=== PATIENT | male | born 1940 | race Caucasian/White ===

== ENCOUNTER 2016-11-07 00:08 | Inpatient (IN) ==
[2016-11-07 00:31] LABS: MANUAL DIFF NEEDED? NO
[2016-11-07 00:37] LABS: BASO% 0.8 % (0.0-0.8); EOS# 0.12 X1000 (0.0-0.7); EOS% 3.3 % (0.0-10.0); HEMATOCRIT 37.9 % (42.0-52.0); IMM GRAN# 0.02 X1000 (0.0-0.04); IMM GRAN% 0.5 % (0.0-0.5); LYMPH% 16.4 % (20.5-51.1); MCHC 34.3 g/dL (33-37); MCV 87.5 FL (81-99); MONO# 0.24 X1000 (0.11-0.59); MONO% 6.6 % (1.7-9.3); MPV 10.2 FL (7.4-10.4); NEUT% 72.4 % (42.2-75.2); PLT 124 X1000 (130-400); RBC 4.33 XMIL (4.7-6.1)
[2016-11-07 00:54] LABS: ALBUMIN 3.7 g/dL (3.5-5.0); CALCIUM 9.2 mg/dL (8.8-10.2); POTASSIUM 4.4 mmol/L (3.5-5.1); TOTAL BILIRUBIN 0.32 mg/dL (0.20-1.00)
[2016-11-07] MEDS ORDERED: TYLENOL PO ONE (01:17)
[2016-11-07] MEDS ORDERED: VANCOMYCIN 1 GM/NS 1 GM/250 ML IVPB IV ONE (01:38)
[2016-11-07] MEDS ORDERED: ZOSYN 3.375 GM/NS 3.375 GM/50 ML IVPB IV ONE (01:38)
--- NOTE | 2016-11-07 01:52 | PROVIDER DOCUMENTATION ---
This chart was entered by Karen Guan Scribe, acting as scribe for Moy Shahid MD. HPI-General Adult - General Chief Complaint: Weakness Stated Complaint: general weakness Time Seen by Provider: 11/07/16 00:36 Source: patient Allergies/Adverse Reactions: Patient Allergies Allergy/AdvReac Type Severity Reaction Status Date / Time No Known Allergies Allergy Verified 06/05/15 13:09 Home Medications: Home Medication List Medication Instructions Recorded Confirmed Last Taken Type Finasteride [Proscar] 5 mg PO DAILY 06/05/15 11/07/16 11/06/16 08:00 History Hagaman-3 Fatty Acids [Fish Oil] 1 mg PO DAILY 06/05/15 11/07/16 06/05/15 07:00 History Omeprazole 1 mg PO DAILY 06/05/15 11/07/16 11/06/16 08:00 History ATORVAstatin [Lipitor] 20 mg PO QHS #0 tablet 06/06/15 11/07/16 11/05/16 20:00 Rx Aspirin EC 81 mg PO DAILY 11/07/16 11/07/16 11/06/16 08:00 History Benazepril/Hydrochlorothiazide 1 each PO DAILY 11/07/16 11/07/16 11/06/16 08:00 History [Benazepril-Hctz 20-25 mg Tab] Diclofenac Sodium 50 mg PO BID PRN PRN 11/07/16 11/07/16 Unknown History Gabapentin 600 mg PO TID PRN PRN 11/07/16 11/07/16 Unknown History Metformin [Glucophage] 500 mg PO DAILY 11/07/16 11/07/16 Unknown History Sulfamethoxazole/Tmp D.s. [Septra 1 each PO BID 11/07/16 11/07/16 11/06/16 08: 00 History Ds] Tramadol HCl 50 mg PO TID PRN PRN 11/07/16 11/07/16 Unknown History - History of Present Illness -Gen Adult Nature of Presenting Problems: 76 Y/O M presents to ED with Weakness.Pt states last night over the weekend weakness began, increased throughout today,this evening not able to stand and get out of chair to go to bed.Pt states lightheaded. Pt has a hx of prostatitis and started Bactrium D, for several days. Pt has HTN, and is pre-diabetic. Hx of neuropathy in legs. hx of stroke. Location of Pain/Injury: reports: generalized Pain Radiation: reports: no radiation Quality of Pain: reports: aching Onset/Duration: reports: last night Timing: reports: still present, changing over time, getting worse Context/Activities at Onset: reports: none Associated Symptoms: reports: fever/chills, vomiting, weakness, trouble walking . denies: chest pain, constipation, malaise, muscle aches, sinus congestion/ drainage, nausea, shortness of breath Similar Symptoms Previously?: No Recently seen or treated by another doctor?: No Review of Systems - Adult - REVIEW OF SYSTEMS - ADULT Constitutional: reports: fever, fatique. denies: chills Eyes: reports: no symptoms reported Ears, Nose, Mouth & Throat: reports: no symptoms reported Cardiovascular: denies: chest pain Respiratory: denies: cough, shortness of breath Gastrointestinal: denies: abdominal pain, diarrhea, nausea, vomiting Genitourinary: denies: dysuria Musculoskeletal: denies: bone pain, back pain Integumentary: reports: no symptoms reported Neurological: reports: dizziness/vertigo (lightheaded) Psychiatric: reports: no symptoms reported Endocrine: reports: no symptoms reported Hematologic/Lymphatic: reports: no symptoms reported Allergic/Immunologic: reports: no symptoms reported All Other Systems: Reviewed and Negative Past History - Adult - PAST MEDICAL HISTORY-ADULT Review of Records: reports: Old Records Reviewed, Nursing Assessment Review, Medications Reviewed, Social history reviewed & non-contributory. Cardiovascular: reports: HTN, hyperlipidemia Musculoskeletal: reports: intervertebral disc disease Other Conditions: reports: cataract/glaucoma - PRIOR SURGERIES/PROCEDURES Surgical/Procedure History: reports: tonsillectomy, back/neck, other (cataracts) Physical Exam-General - CONSTITUTIONAL General Appearance: alert, lethargic, other (warm to touch) - EYES Eyes: PERRL/EOMI - HEAD, EARS, NOSE, MOUTH & THROAT HENMT: TMs normal, pharynx normal, hearing deficit. negative: moist mucous membranes - NECK Neck: full range of motion, supple - RESPIRATORY Respiratory: lungs clear, normal breath sounds - CARDIOVASCULAR Cardiovascular: regular rate, rhythm - GASTROINTESTINAL (ABDOMEN) Abdominal Exam: non tender, soft - LYMPHATIC Lymphatic: no adenopathy - MUSCULOSKELETAL Back Exam: no CVA tenderness, no vertebral tenderness Extremity: non-tender (hx of neuropathy) - SKIN Integumentary: normal turgor, warm/dry - PSYCHIATRIC Psych/Mental Status: normal mood/affect, normal thought content, normal thought process Progress - PLAN OF CARE/RESULTS Progress/Plan/Lab Results: Vital Signs - 8 hr 11/07/16 00:18 Temperature 102.5 F H Pulse Rate 101 H Respiratory Rate 20 Blood Pressure 162/70 O2 Sat by Pulse Oximetry 93 L Laboratory Results - last 24 hr 11/07/16 11/07/16 00:13 00:13 WBC 3.65 L RBC 4.33 L Hgb 13.0 L Hct 37.9 L MCV 87.5 MCH 30.0 MCHC 34.3 RDW Std Deviation 13.9 Plt Count 124 L MPV 10.2 Immature Gran % (Auto) 0.5 Neut % (Auto) 72.4 Lymph % (Auto) 16.4 L [place] % (Auto) 6.6 Eos % (Auto) 3.3 Baso % (Auto) 0.8 Immature Gran # (Auto) 0.02 Neut # (Auto) 2.64 Lymph # (Auto) 0.60 L [place] # (Auto) 0.24 Eos # (Auto) 0.12 Baso # (Auto) 0.03 Sodium 132 L Potassium 4.4 Chloride 97 L Carbon Dioxide 23 L Anion Gap 12 BUN 30 H Creatinine 1.3 H Estimated GFR/1.73 m2 54 BUN/Creatinine Ratio 23 Glucose 142 H Calculated Osmolality 273 Calcium 9.2 Total Bilirubin 0.32 AST 39 H ALT 39 Alkaline Phosphatase 69 Total Protein 7.0 Albumin 3.7 Globulin 3.3 Albumin/Globulin Ratio 1.1 Orders Category Date Time Status BLOOD CULTURE [BLDCUL] Stat Lab 11/07/16 00:18 Results CBC WITH ELECTRONIC DIFF [HEME] Stat Lab 11/07/16 00:13 Completed COMPREHENSIVE METABOLIC PANEL [CHEM] Stat Lab 11/07/16 00:13 Received LACTATE, PLASMA [CHEM] Stat Lab 11/07/16 00:49 Ordered Result Diagrams: 11/07/16 00:13 11/07/16 00:13 - CONSULTS/PCP/HOSPITALIST Notification #1 *Consult/PCP/Hospitalist*: Time Discussed: 01:46 Reason/Comments: Admit Consult Disposition: Admit (Admit Accepted) Departure - Departure Date of Disposition Decision: 11/07/16 Time of Disposition Decision: 01:51 DIAGNOSIS: Septicemia Disposition: ADMITTED INPATIENT 09 Certified Medical Emergency: Emergent Condition: Fair - Critical Care Note This patient required my direct & personal management of CC.: No This chart was documented by the indicated scribe, (Karen Guan, Romi) and accurately reflects the services I performed and decisions made by me, Moy Shahid MD, as attested by the provider's signature.
[2016-11-07] MEDS ORDERED: ZOFRAN IV PRN (03:21)
[2016-11-07] MEDS ORDERED: ULTRAM PO PRN (03:21)
[2016-11-07] MEDS ORDERED: NEURONTIN PO PRN (03:21)
[2016-11-07] MEDS: NS 1,000 ML IV SCH ×2 (03:42→17:11)
[2016-11-07 06:06] LABS: BASO% 0.9 % (0.0-0.8); EOS# 0.05 X1000 (0.0-0.7); EOS% 1.5 % (0.0-10.0); HEMATOCRIT 36.5 % (42.0-52.0); HEMOGLOBIN 12.4 g/dL (14.0-18.0); LYMPH# 0.65 X1000 (1.2-3.4); LYMPH% 19.2 % (20.5-51.1); MCV 88.4 FL (81-99); MONO# 0.19 X1000 (0.11-0.59); MONO% 5.6 % (1.7-9.3); MPV 9.9 FL (7.4-10.4); NEUT% 72.8 % (42.2-75.2); PLT 114 X1000 (130-400); RBC 4.13 XMIL (4.7-6.1)
[2016-11-07 06:19] LABS: URINE CULTURE NEEDED? NO; URINE MICRO REVIEW NEEDED? NO; URINE SOURCE CLEAN CATCH
[2016-11-07 06:21] LABS: HEMOGLOBIN A1C 5.9 % (4.8-6.0)
[2016-11-07 06:30] LABS: BILIRUBIN URINE NEGATIVE (NEGATIVE); BLOOD URINE NEGATIVE (NEGATIVE); COLOR YELLOW; GLUCOSE URINE NEGATIVE (NEGATIVE); LEUKOCYTES URINE NEGATIVE (NEGATIVE); NITRITE URINE NEGATIVE (NEGATIVE); PROTEIN URINE TRACE mg/dL (NEGATIVE); SP GRAVITY URINE 1.017; TURBIDITY URINE CLEAR (CLEAR); UR EPITHELIAL CELLS <10 /HPF (<10); URINE BACTERIA NEGATIVE /HPF; URINE RBC <10 /HPF (<10); URINE WBC <10 /HPF (<10); UROBILINOGEN URINE NORMAL (NORMAL)
--- NOTE | 2016-11-07 07:51 | Diag Imaging Result Doc PS360 ---
EXAM: CHEST-1 VIEW INDICATION: baseline TECHNIQUE: One view COMPARISON: 06/05/2015 FINDINGS: There is suggestion of trace subsegmental atelectasis at the right lower lung zone. The lungs are grossly clear, otherwise. There is no discrete pleural fluid collection or pneumothorax. The cardiomediastinal silhouette and central vasculature are grossly unremarkable. IMPRESSION: Trace subsegmental atelectasis at the right lower lung zone. No definite acute pathology, otherwise. Electronically signed by Christiano Buenrostro 11/07/2016 7:49 AM
[2016-11-07] MEDS: PROSCAR PO SCH (07:59)
[2016-11-07] MEDS: ASPIRIN EC PO SCH (07:59)
[2016-11-07] MEDS: PRILOSEC PO SCH (07:59)
--- NOTE | 2016-11-07 08:19 | HISTORY AND PHYSICAL ---
CHIEF COMPLAINT: Difficulty peeing, weakness. HISTORY OF PRESENT ILLNESS: This is a 76-year-old gentleman with BPH who has been treated by Dr. Metcalf for prostatitis. He has been on antibiotics, Bactrim, for at least 2 weeks. He states he has had episodes before and has been on before. He has increasing weakness throughout the day, difficulty standing up, lightheaded. He came in for evaluation to the ER. He did not have leukocytosis but he did have a temperature of 102.5 degrees. Heart rate of 101, and he was admitted for treatment. His white count is actually 3.6 and he had some renal insufficiency. He was admitted for prostatitis, early sepsis, failing outpatient therapy. PAST MEDICAL HISTORY: 1. History of CVA. 2. Hypertension. 3. Dyslipidemia. 4. BPH. 5. Prediabetic. May be metabolic syndrome. PAST SURGICAL HISTORY: He has had a TURP or he has had radiotherapy. Family history is reviewed and noncontributory. He has had a tonsillectomy, back and neck surgery, and cataract surgery. SOCIAL HISTORY: No tobacco or ethanol use. He is a retired chemical unit operator. . ALLERGIES: No known drug allergies. MEDICATIONS: 1. He is on aspirin 81 daily. 2. Lipitor 20 mg daily. 3. Benazepril. 4. Hydrochlorothiazide 20/25 daily. 5. Diclofenac 50 b.i.d. 6. Proscar 5 daily. 7. Gabapentin 600 t.i.d. 8. Glucophage 500 daily. 9. Fish oil 300 daily. 10. Omeprazole 40 daily. 11. Bactrim. 12. Tramadol. REVIEW OF SYSTEMS: Ten systems reviewed, otherwise, negative. No cough. No nausea, vomiting, diarrhea. No rash. PHYSICAL EXAMINATION: VITAL SIGNS: Blood pressure 163/58, heart rate of 98, respiratory rate 20, temperature 100.7 degrees, 95% on 2 L. CARDIOVASCULAR: Regular rate and rhythm. PULMONARY: Bilateral breath sounds. Clear to auscultation. GI: Soft, nontender, nondistended. Bowel sounds are positive. EXTREMITIES: No clubbing or cyanosis. LYMPHATICS: No peripheral edema. NEUROLOGICAL: Nonfocal. LABORATORY DATA: White count 3.6, hemoglobin and hematocrit 1337, platelets 124,000. BUN and creatinine of 30 and 1.3. PROBLEM LIST/ASSESSMENT: A 76-year-old male presenting with febrile illness with recent diagnosis of prostatitis and early sepsis. Current issues: 1. Prostatitis sepsis. He has been started on Zosyn, I will continue that. At this point, I do not think vancomycin is necessary. He has not had recent instrumentation. We will obtain urine, urine culture, blood cultures, and follow clinically. We will consult Dr. Metcalf who has seen him recently. 2. Pancytopenia may be related to early sepsis. We will check B 12, folate, peripheral smear, reticulocyte count and follow his counts. 3. Hypertension. Continue regular medications. 4. Acute kidney injury. We will check urine electrolytes. Gentle hydration, obviously hold Bactrim for right now. Diclofenac, benazepril, hydrochlorothiazide, and follow closely. DISPOSITION: Per Dr. Reddy. cc: MD Casper Gamble MD Sergey S. Ananyev, MD
[2016-11-07] MEDS ORDERED: GLUCOPHAGE PO SCH (09:00)
[2016-11-07 09:24] LABS: MANUAL DIFF NEEDED? YES
[2016-11-07 09:40] LABS: BANDS 3 % (0-1); EOS 3 % (1-10); LYMPHS 12 % (21-51); MONO 6 % (1-9)
[2016-11-07] MEDS: ZOSYN 3.375 GM/NS 3.375 GM/50 ML IVPB IV SCH ×3 (11:32→21:37)
[2016-11-07] MEDS: GLUCOPHAGE PO SCH (17:11)
[2016-11-07] MEDS: LIPITOR PO SCH (21:37)
[2016-11-08] MEDS: ZOSYN 3.375 GM/NS 3.375 GM/50 ML IVPB IV SCH (04:03)
[2016-11-08] MEDS: NS 1,000 ML IV SCH (04:04)
--- NOTE | 2016-11-08 05:44 | EKG Report ---
Test Performed on : 11/07/2016 00:02:49 AM Test Reason : WEAKNESS Blood Pressure : / mmHG Vent. Rate : 102 BPM Atrial Rate : 102 BPM P-R Int : 174 ms QRS Dur : 102 ms QT Int : 324 ms P-R-T Axes : 047 040 053 degrees QTc Int : 422 ms Sinus tachycardia. Incomplete right bundle branch block Borderline ECG When compared with ECG of 06-JUN-2015 06:47, Vent. rate has increased BY 41 BPM T wave amplitude has decreased in Anterior leads Unconfirmed Result
[2016-11-08 06:19] LABS: BASO% 0.5 % (0.0-0.8); EOS# 0.04 X1000 (0.0-0.7); HEMATOCRIT 36.7 % (42.0-52.0); HEMOGLOBIN 12.5 g/dL (14.0-18.0); LYMPH# 1.64 X1000 (1.2-3.4); LYMPH% 40.4 % (20.5-51.1); MANUAL DIFF NEEDED? NO; MCHC 34.1 g/dL (33-37); MONO# 0.52 X1000 (0.11-0.59); MONO% 12.8 % (1.7-9.3); MPV 9.7 FL (7.4-10.4); NEUT% 45.3 % (42.2-75.2); PLT 119 X1000 (130-400); RBC 4.17 XMIL (4.7-6.1)
[2016-11-08 08:22] LABS: RETIC% 0.49 % (0.8-2.1); RETIC-HE 30.4 PG (28.2-36.6)
[2016-11-08] MEDS: ASPIRIN EC PO SCH (08:37)
[2016-11-08] MEDS: PROSCAR PO SCH (08:37)
[2016-11-08] MEDS: PRILOSEC PO SCH (08:37)
[2016-11-08] MEDS: CIPRO PO SCH ×3 (09:48→22:15)
--- NOTE | 2016-11-08 13:28 | Diag Imaging Result Doc PS360 ---
EXAM: CT PELVIS W/WO CONTRAST INDICATION: evaluate for prostatic abscess TECHNIQUE: COMPARISON: None. FINDINGS: The prostate is grossly unremarkable. There is no evidence of pelvic abscess. There is no evidence of significant pelvic lymphadenopathy. There is extensive sigmoid and descending colonic diverticulosis but no evidence of diverticulitis. There are several pelvic phleboliths. The urinary bladder is unremarkable. There is a small fat-containing left inguinal hernia. No focal inflammatory changes, free abdominal gas, or free fluid is appreciated, otherwise. There is a small fat-containing umbilical hernia. There are degenerative changes involving the lower lumbar spine. Bony structures are grossly intact. IMPRESSION: 1.Unremarkable prostate with no evidence of pelvic abscess. 2.Extensive uncomplicated diverticulosis coli. 3.Small fat-containing left inguinal and umbilical hernias. Electronically signed by Christiano Buenrostro 11/08/2016 1:25 PM
[2016-11-08] MEDS: GLUCOPHAGE PO SCH (17:12)
[2016-11-08] MEDS: LIPITOR PO SCH ×2 (19:46→22:15)
[2016-11-09 07:53] VITALS: BP 139/83
[2016-11-09] MEDS: PRILOSEC PO SCH (08:43)
[2016-11-09] MEDS: ASPIRIN EC PO SCH (08:43)
[2016-11-09] MEDS: CIPRO PO SCH (08:43)
[2016-11-09] MEDS: PROSCAR PO SCH (08:44)
--- NOTE | 2016-11-09 13:23 | PROGRESS NOTE ---
DATE: 11/09/2016 SUBJECTIVE: Mr. Galloway did not have reported pain or events over night. OBJECTIVE: Vital Signs: T 98.6 degrees, P 72, BP 140/66. He had urine output of 3 liters. General: No acute distress. PERTINENT LABS: None today. IMAGING: CT of the pelvis with and without IV contrast performed on 11/08/2016 that I ordered ruled out prostatic abscess. ASSESSMENT: This is a 76-year-old male with prostatitis which initially improved on outpatient management but then recurred. We ruled out potential etiology that would lead to surgical intervention. The patient is comfortable with being switched to oral antibiotics and monitoring his symptoms. He has had elevated postvoid residuals but has been able to urinate. PLAN: 1. Cleared for discharge from a standpoint. 2. He will go home on antibiotics per Dr. Reddy's discretion. I have discussed the patient with Dr. Reddy in person. 3. I will be happy to see him in my clinic in 2-4 weeks to assess his progress. cc: MD Casper Cooper MD
--- NOTE | 2016-11-10 11:34 | DISCHARGE SUMMARY ---
ADMISSION DATE: 11/07/2016 DISCHARGE DATE: 11/09/2016 FINAL DIAGNOSIS: 1. Acute bacterial prostatitis. 2. History of impaired fasting glucose. 3. History of essential hypertension. 4. Dyslipidemia. 5. Benign prostatic hypertrophy. 6. Cerebrovascular disease with history of cerebrovascular accident. 7. Mild pancytopenia. 8. Diarrhea, probably due to recent antibiotics. PRESENT ILLNESS: Mr. Galloway is a 76-year-old gentleman with a 2-week history of difficulty voiding and antibiotic therapy by his urologist, Dr. Metcalf for prostatitis. On the day of admission he suddenly felt very weak and was unable to get up and walk around as usual. He was brought to the emergency room. Found to have a temperature of a 102.5 degrees, tachycardia of 101, and further lab work revealed mild pancytopenia with a white blood count 3600, platelet count of a 124,000, hemoglobin of 13, hematocrit 37%. BUN and creatinine were minimally elevated at 30 and 1.3. PHYSICAL EXAMINATION: General: Alert pleasant elderly gentleman. Lungs: Clear lung sounds. Cardiac: Unremarkable. No edema, but moderate generalized weakness. DIAGNOSTICS: Chest x-ray was normal except for possibly very mild atelectasis. His urinalysis was normal. HOSPITAL COURSE: In the emergency room he was treated with intravenous Zosyn antibiotic. He was admitted to the medical floor. Due to his low white blood count, elevated temperature and mild tachycardia, he had met the definition of systemic inflammatory response syndrome. We were unable to confirm the source of infection, but due to his recent prostate difficulties, his urologist and I felt that he would probably had acute prostatitis. He had been taking trimethoprim sulfa antibiotic and this was felt to be ineffective and after is 48 hours of the Zosyn, he was changed to oral Cipro and continued to improve. He has had some intermittent loose stools, probably due to the previous antibiotic therapy. If this persists he is instructed to call my office and we will do stool studies for C. difficile. Repeat CBC showed slight improvement of his white blood count to just above 4000 and stable hemoglobin and hematocrit and platelet count. His blood pressure never was low and was actually moderately high, and so although his Lotensin HCT was held in the hospital, he will be resuming it at home. He is instructed to follow his temperature twice daily and call for any elevation over 100.5. He is return to my office next week for CBC and basic metabolic profile, as well as clinical followup. Other laboratory here in the hospital, he had a slightly low reticulocyte count, normal B12, folate, and TSH. His A1c here was 5.9. He is discharged in much improved condition. DISCHARGE MEDICATIONS: Cipro 500 mg twice a day, Flomax 0.4 mg 30 minutes after supper, aspirin 81 mg daily, Lipitor 20 mg daily, benazepril/hydrochlorothiazide 20/25 1 daily, Proscar 5 mg daily, gabapentin 600 mg 3 times a day, Glucophage 500 mg daily, fish oil 1 capsule daily, omeprazole 40 mg daily. He is to stopped diclofenac 50 mg twice a day. Also, Imodium 1 caplet 3 times a day as needed for diarrhea. Probiotic 1 twice a day. cc: Casper Reddy MD
== END 2016-11-09 11:19 | disposition home or self-care (01) ==
LOC: ED 00:08 → SUATTDRO 02:49 → 4N 02:49 → SUPCPDRO 02:49
PROVIDERS: ADMIT Internal Medicine; ATTEND Internal Medicine